=== PATIENT | male | born 1990 ===

== ENCOUNTER 2020-04-23 19:17 | Emergency (ER) | payer SELFPAY ==
[2020-04-23] MEDS ORDERED: SODIUM CHLORIDE 0.9% 1000 ML 1,000 ML IV ONE (19:38)
[2020-04-23] MEDS ORDERED: KETOROLAC 30 MG/1 ML INJ IV ONE (19:38)
--- NOTE | 2020-04-23 19:39 | Event Note ---
ED Screening Note Date of service: 04/23/20 Time: 19:37 ED Screening Note: c/o lower abd pain and mild dysuria since yesterday This initial assessment/diagnostic orders/clinical plan/treatment(s) is/are subject to change based on patients health status, clinical progression and re- assessment by fellow clinical providers in the ED. Further treatment and workup at subsequent clinical providers discretion. Patient/guardian urged not to elope from the ED as their condition may be serious if not clinically assessed and managed. Initial orders include: cbc cmp lipase ua
[2020-04-23] MEDS ORDERED: ACETAMINOPHEN 500 MG TAB PO ONE (20:18)
[2020-04-23 20:19] LABS: Hematocrit 37.1 % (35.5-45.6); Hemoglobin 12.4 gm/dl (11.8-15.2); Mean Corpuscular HGB Conc 33 % (32-34); Mean Corpuscular Volume 76 fl (84-94); Platelet Count 252 K/mm3 (140-440); Red Cell Distribution Width 15.4 % (13.2-15.2)
[2020-04-23 20:35] LABS: Alanine Aminotransferase 16 units/L (7-56); Albumin 3.9 g/dL (3.9-5); BUN/Creatinine Ratio 9; Blood Urea Nitrogen 11 mg/dL (9-20); Calcium 8.6 mg/dL (8.4-10.2); Hemolysis Index 27
[2020-04-23 20:45] LABS: Bilirubin,Urine NEG (Negative); Blood,Urine NEG (Negative); Color,Urine Yellow (Yellow); Mucus,Urine FEW /HPF; Protein,Urine <15 mg/dL mg/dL (Negative)
--- NOTE | 2020-04-23 20:58 | Emergency Department Report ---
ED Abdominal Pain HPI - General Chief Complaint: Abdominal Pain Stated Complaint: STOMACH PAINS Time Seen by Provider: 04/23/20 20:00 Source: patient Mode of arrival: Ambulatory Limitations: No Limitations - History of Present Illness Initial Comments: 29-year-old -[place] male presents to the emergency room for an acute abdominal pain that started yesterday. Patient states that the pain is in his lower abdomen it is crampy and stabbing at times. He states he feels gas bubbling in his stomach. Patient denies any penile discharge but does admit to some dysuria. 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 Patient states he does not take the acyclovir as it made him feel worse. Patient denies any nausea no vomiting no diarrhea or constipation. Patient denies any sick contact. Patient does not have a primary care provider. It was noted that patient had an elevated temp of 101.0 and was tachycardic at 117. MD Complaint: abdominal pain Severity scale (0 -10): 3 - Related Data Previous Rx's Medication Instructions Recorded Last Taken Type levoFLOXacin [Levaquin TAB] 500 mg PO QDAY 7 Days #7 tablet 04/23/20 Unknown Rx metroNIDAZOLE [Flagyl] 500 mg PO Q12HR 7 Days #14 tab 04/23/20 Unknown Rx traMADoL [Ultram 50 MG tab] 50 mg PO Q6HR PRN #12 tablet 04/23/20 Unknown Rx Allergies Allergy/AdvReac Type Severity Reaction Status Date / Time No Known Allergies Allergy Unverified 04/23/20 20:18 ED Review of Systems ROS: Stated complaint: STOMACH PAINS Other details as noted in HPI ED Past Medical Hx - Past Medical History Additional medical history: genital herpes - Surgical History Hx Appendectomy: Yes - Social History Smoking Status: Never Smoker - Medications Home Medications: Home Medications Medication Instructions Recorded Confirmed Last Taken Type levoFLOXacin [Levaquin TAB] 500 mg PO QDAY 7 Days #7 tablet 04/23/20 Unknown Rx metroNIDAZOLE [Flagyl] 500 mg PO Q12HR 7 Days #14 tab 04/23/20 Unknown Rx traMADoL [Ultram 50 MG tab] 50 mg PO Q6HR PRN #12 tablet 04/23/20 Unknown Rx ED Physical Exam - General Limitations: No Limitations General appearance: alert, in no apparent distress - Head Head exam: Present: atraumatic, normocephalic - Eye Eye exam: Present: normal appearance - ENT ENT exam: Present: mucous membranes moist - Neck Neck exam: Present: normal inspection, full ROM - Respiratory Respiratory exam: Present: normal lung sounds bilaterally. Absent: respiratory distress - Cardiovascular Cardiovascular Exam: Present: regular rate, normal rhythm. Absent: systolic murmur, diastolic murmur, rubs, gallop - GI/Abdominal GI/Abdominal exam: Present: soft, normal bowel sounds. Absent: distended, ten derness, guarding, rebound - exam: Absent: testicular tenderness, scrotal swelling External exam: Absent: swelling - Extremities Exam Extremities exam: Present: normal inspection, full ROM. Absent: pedal edema - Back Exam Back exam: Present: normal inspection, full ROM - Neurological Exam Neurological exam: Present: alert, oriented X3, normal gait - Psychiatric Psychiatric exam: Present: normal affect, normal mood - Skin Skin exam: Present: warm, dry, intact, normal color. Absent: rash ED Course Vital Signs 04/23/20 04/23/20 19:27 22:45 Temperature 101.0 F H 98.0 F Pulse Rate 117 H 68 Respiratory 18 16 Rate Blood Pressure 118/73 Blood Pressure 115/68 [Right] O2 Sat by Pulse 95 99 Oximetry - Consultations Consultation #1: 04/23/20 23:[address]Mim Awan gastroenterology. She agrees with discharging patient on Flagyl and Levaquin. She refers patient to follow-up in their clinic. ED Medical Decision Making - Lab Data Result diagrams: 04/23/20 Unknown 04/23/20 Unknown - Radiology Data Radiology results: report reviewed Patient: IRISH AMARAL MR#: [id number] : 1990 Acct:[id number] Age/Sex: 29 / M ADM Date: 04/23/20 Loc: ED Attending Dr: Ordering Physician: SOFIA RIGGINS Date of Service: 04/23/20 Procedure(s): CT abdomen pelvis w con Accession Number(s): [id number] cc: SOFIA RIGGINS CT ABDOMEN AND PELVIS WITH CONTRAST INDICATION / CLINICAL INFORMATION: Patient complains of RIGHT lower abd pain with fever. TECHNIQUE: Axial CT images were obtained through the abdomen and pelvis after IV contrast. All CT scans at this location are performed using CT dose reduction for ALARA by means of automated exposure control. COMPARISON: None available. FINDINGS: LOWER CHEST: No significant abnormality. LIVER: No significant abnormality. GALLBLADDER: No significant abnormality. BILE DUCTS: No significant abnormality. PANCREAS: No significant abnormality. SPLEEN: No significant abnormality. ADRENALS: No significant abnormality. RIGHT KIDNEY / URETER: No significant abnormality. LEFT KIDNEY / URETER: No significant abnormality. STOMACH / SMALL BOWEL: Significant concentric mural thickening noted of the terminal ileum with surrounding fat stranding. No mechanical bowel obstruction. COLON: Significant inflammatory changes with concentric mural thickening and pericolonic fat stranding noted at the level of the cecum extending into the ascending colon. Multiple enlarged pericecal lymph nodes are noted, the largest measuring 1.4 x 1.0 cm. APPENDIX: The appendix is not well-visualized on this exam secondary to significant local inflammatory changes. Additionally there are multiple clips noted in the right lower quadrant abdomen which may represent prior appendectomy. PERITONEUM: No free fluid. No free air. No complex fluid collection. LYMPH NODES: Enlarged pericecal lymph nodes are noted. AORTA / ARTERIES: No significant abnormality. IVC / VEINS: No significant abnormality. URINARY BLADDER: No significant abnormality. REPRODUCTIVE ORGANS: No significant abnormality. ADDITIONAL FINDINGS: None. SKELETAL SYSTEM: No significant abnormality. No aggressive osseous lesions. IMPRESSION: 1. Significant inflammatory changes with concentric mural thickening and fat stranding involving the terminal ileum, cecum, and proximal ascending colon. Infectious versus inflammatory enteritis/colitis is suspected. Further clinical evaluation for inflammatory bowel disease is recommended if the patient does not have a prior history. Signer Name: Ti Conner MD Signed: 04/23/2020 10:11 PM Workstation Name: [id number] Transcribed By: Dictated By: TI CONNER Electronically Authenticated By: TI CONNER Signed Date/Time: 04/23/202210 DD/ 99 TD/TT: - Medical Decision Making 29-year-old -[place] male presents to the emergency room for an acute abdominal pain that started yesterday. Patient states that the pain is in his lower abdomen it is crampy and stabbing at times. He states he feels gas bubbling in his stomach. Patient denies any penile discharge but does admit to some dysuria. Patient states he has a history of genital herpes and Felty's has a recent outbreak. Patient states he does not take the acyclovir as it made him feel worse. Patient denies any nausea no vomiting no diarrhea or constipation. Patient denies any sick contact. Patient does not have a primary care provider. It was noted that patient had an elevated temp of 101.0 and was tachycardic at 117. The patient is resting comfortably and feels better, is alert and in no distress. The repeat examination is unremarkable and benign; in particular, there is no discomfort at the McBurney's point and there is no pulsating mass. The history, exam and diagnostic testing, and current condition do not suggest an acute appendicitis, bowel obstruction, or acute cholecystitis, bowel perforation, major gastrointestinal bleeding, severe diverticulitis, abdominal aorta, mesenteric ischemia, volvulus, sepsis, or other significant pathology to warrant further testing, continued ED treatment, admission, or surgical evaluation at this point. CT scan shows enteritis versus colitis. Is very important that you follow-up with a church history professor I have listed their information below. The vital signs have been stable. The patient does not have uncomfortable pain, irretractable vomiting, or other significant symptoms. The patient's condition is stable and appropriate for discharge from the emergency room. The patient will pursue further outpatient evaluation with the primary care physician or other designated or consulting physician as indicated in the discharge instructions. Critical care attestation.: If time is entered above; I have spent that time in minutes in the direct care of this critically ill patient, excluding procedure time. ED Disposition Clinical Impression: Colitis, Enteritis Disposition: DC-01 TO HOME OR SELFCARE Is pt being admited?: No Does the pt Need Aspirin: No Condition: Stable Instructions: Colitis Additional Instructions: Your CT scan shows that you have enteritis versus colitis. Is very important that you follow-up with a church history professor I have listed their information below. Please complete your antibiotics as prescribed. Pain medication as needed. Very important that you follow-up with a church history professor I am ref erring you to [facility]. Prescriptions: metroNIDAZOLE [Flagyl] 500 mg PO Q12HR 7 Days #14 tab levoFLOXacin [Levaquin TAB] 500 mg PO QDAY 7 Days #7 tablet traMADoL [Ultram 50 MG tab] 50 mg PO Q6HR PRN #12 tablet PRN Reason: Pain Referrals: ALY AKERS MD [Primary Care Provider] - 3-5 Days [facility] [Provider Group] - 3-5 Days Forms: Work/School Release Form(ED)
[2020-04-23 21:04] LABS: Total Cells Counted 100
[2020-04-23 21:05] LABS: Anisocytosis Few; Hypochromasia 1+
--- NOTE | 2020-04-23 22:15 | Cat Scan Report ---
CT ABDOMEN AND PELVIS WITH CONTRAST INDICATION / CLINICAL INFORMATION: Patient complains of RIGHT lower abd pain with fever. TECHNIQUE: Axial CT images were obtained through the abdomen and pelvis after IV contrast. All CT scans at this location are performed using CT dose reduction for ALARA by means of automated exposure control. COMPARISON: None available. FINDINGS: LOWER CHEST: No significant abnormality. LIVER: No significant abnormality. GALLBLADDER: No significant abnormality. BILE DUCTS: No significant abnormality. PANCREAS: No significant abnormality. SPLEEN: No significant abnormality. ADRENALS: No significant abnormality. RIGHT KIDNEY / URETER: No significant abnormality. LEFT KIDNEY / URETER: No significant abnormality. STOMACH / SMALL BOWEL: Significant concentric mural thickening noted of the terminal ileum with surro unding fat stranding. No mechanical bowel obstruction. COLON: Significant inflammatory changes with concentric mural thickening and pericolonic fat strandin g noted at the level of the cecum extending into the ascending colon. Multiple enlarged pericecal lym ph nodes are noted, the largest measuring 1.4 x 1.0 cm. APPENDIX: The appendix is not well-visualized on this exam secondary to significant local inflammator y changes. Additionally there are multiple clips noted in the right lower quadrant abdomen which may represent prior appendectomy. PERITONEUM: No free fluid. No free air. No complex fluid collection. LYMPH NODES: Enlarged pericecal lymph nodes are noted. AORTA / ARTERIES: No significant abnormality. IVC / VEINS: No significant abnormality. URINARY BLADDER: No significant abnormality. REPRODUCTIVE ORGANS: No significant abnormality. ADDITIONAL FINDINGS: None. SKELETAL SYSTEM: No significant abnormality. No aggressive osseous lesions. IMPRESSION: 1. Significant inflammatory changes with concentric mural thickening and fat stranding involving the terminal ileum, cecum, and proximal ascending colon. Infectious versus inflammatory enteritis/colitis is suspected. Further clinical evaluation for inflammatory bowel disease is recommended if the patie nt does not have a prior history. Signer Name: Ti Valle MD Signed: 04/23/2020 10:11 PM Workstation Name: [id number]
[2020-04-23] MEDS ORDERED: metroNIDAZOLE/NS 500 MG/100 ML 500 MG/100 ML BAG IV ONE (22:22)
[2020-04-23 22:46] VITALS: BP 115/68
== END 2020-04-24 00:50 | disposition home or self-care (01) ==
LOC: EDBD → ED 19:17
DX: K52.9 Noninfective gastroenteritis and colitis, unspecified (principal); Z79.899 Other long term (current) drug therapy; Z90.49 Acquired absence of other specified parts of digestive tract
CPT/HCPCS: 36415; 74177; 80053; 81001; 83690; 85007; 85025; 96361; 96365; 96367; 96368; 96375; 99284; J1885; J1956; J7030; Q9967